=== PATIENT | male | born 1990 | race Caucasian/White ===

== ENCOUNTER 2016-12-13 14:58 | Emergency (ER) | payer BC ==
[2016-12-13] MEDS ORDERED: MVI, Adult with Vitamin K 10 ML, Thiamine 100 MG, Folic Acid 1 MG in Lactated Ringers 1... IV ONE ×4 (15:28)
--- NOTE | 2016-12-13 15:31 | EDM.PDOC ---
ED HPI GENERAL MEDICAL PROBLEM - General Chief Complaint: General Stated Complaint: NOT FEELING GOOD, BP IS HIGH, [id number] Time Seen by Provider: 12/13/16 15:20 History Limitations: Reports: No Limitations - History of Present Illness INITIAL COMMENTS - FREE TEXT/NARRATIVE: 26 yo white male who drinks alcohol daily c/o not feeling himself. Some dizziness Onset: Today Onset Date: 12/13/16 Onset Time: 08:00 Duration: Hour(s): Location: Reports: Generalized Severity: Moderate Improves with: Reports: None Worsens with: Reports: None Associated Symptoms: Reports: Malaise, Weakness - Related Data Allergies Allergy/AdvReac Type Severity Reaction Status Date / Time amoxicillin [From Augmentin] Allergy Hives Verified 12/13/16 15:01 clavulanic acid Allergy Hives Verified 12/13/16 15:01 [From Augmentin] Home Meds: Home Meds . [No Known Home Meds] 12/13/16 [History] Past Medical History - Past Surgical History HEENT Surgical History: Reports: Other (See Below) Other HEENT Surgeries/Procedures: cleft palate repair GI Surgical History: Reports: Hernia, Inguinal Musculoskeletal Surgical History: Reports: Other (See Below) Other Musculoskeletal Surgeries/Procedures:: bone grafting and cleft palate repair Social & Family History - Family History Family Medical History: Noncontributory - Tobacco Use Smoking Status *Q: Current Every Day Smoker Years of Tobacco use: 5 Packs/Tins Daily: 0.3 - Caffeine Use Caffeine Use: Reports: Coffee - Alcohol Use Days Per Week of Alcohol Use: 7 Number of Drinks Per Day: 7 Total Drinks Per Week: 49 Date of Last Drink: 12/12/16 - Recreational Drug Use Recreational Drug Use: No ED ROS GENERAL - Review of Systems Review Of Systems: See Below Constitutional: Reports: Malaise, Weakness HEENT: Reports: No Symptoms Respiratory: Reports: No Symptoms Cardiovascular: Reports: No Symptoms Endocrine: Reports: No Symptoms GI/Abdominal: Reports: No Symptoms : Reports: No Symptoms Musculoskeletal: Reports: No Symptoms Skin: Reports: No Symptoms Neurological: Reports: No Symptoms Psychiatric: Reports: No Symptoms Hematologic/Lymphatic: Reports: No Symptoms Immunologic: Reports: No Symptoms ED EXAM, GENERAL - Physical Exam Exam: See Below Exam Limited By: No Limitations General Appearance: Alert, WD/WN, No Apparent Distress Eye Exam: Bilateral Eye: EOMI, PERRL Ears: Normal External Exam Nose: Normal Inspection Throat/Mouth: Normal Inspection, Normal Lips Head: Atraumatic Neck: Normal Inspection Respiratory/Chest: No Respiratory Distress, No Accessory Muscle Use Cardiovascular: Normal Peripheral Pulses Peripheral Pulses: 2+: Radial (L), Radial (R) GI/Abdominal: Normal Bowel Sounds, Soft, Non-Tender (Male) Exam: No Hernia Back Exam: Normal Inspection, Full Range of Motion Extremities: Normal Inspection, Normal Range of Motion Neurological: Alert, Oriented, CN II-XII Intact Psychiatric: Normal Affect Skin Exam: Warm Lymphatic: No Adenopathy Course - Vital Signs Last Recorded V/S: Last Vital Signs Temp 37.0 C 12/13/16 15:07 Pulse 88 12/13/16 16:23 Resp 20 12/13/16 15:07 BP 154/100 H 12/13/16 16:23 Pulse Ox 98 12/13/16 16:23 - Orders/Labs/Meds Orders: Active Orders 24 hr Category Date Time Status URINALYSIS W/MICROSCOPIC [UA W/MICROSCOPIC] [URIN] Stat Lab 12/13/16 16:13 Received MVI, Adult with Vitamin K [Infuvite Adult] 10 ml Med 12/13/16 15:28 Active Thiamine [Vitamin B-1] 100 mg Folic Acid 1 mg Lactated Ringers [Ringers, Lactated] 1,000 ml IV .BOLUS Medication Orders Multivitamins/Minerals 10 ml/Thiamine HCl 100 mg/ Folic Acid 1 mg/ Lactated Ringer's 1,011.2 mls @ 999 mls/hr IV .BOLUS ONE Stop: 12/13/16 16:28 Last Admin: 12/13/16 15:48 Dose: 999 mls/hr Labs: Laboratory Tests 12/13/16 12/13/16 12/13/16 Range/Units 15:22 15:33 15:33 WBC 7.3 (5.0-10.0) 10^3/uL RBC 4.53 L (4.6-6.2) 10^6/uL Hgb 15.0 (14.0-18.0) g/dL Hct 44.3 (40.0-54.0) % MCV 97.8 (80-100) fL MCH 33.1 (27.0-34.0) pg MCHC 33.9 (33.0-35.0) g/dL Plt Count 190 (150-450) 10^3/uL Neut % (Auto) 64.1 (42.2-75.2) % Lymph % (Auto) 24.9 (20.5-50.1) % Morgan % (Auto) 7.6 (2-8) % Eos % (Auto) 3.0 (1.0-3.0) % Baso % (Auto) 0.4 (0.0-1.0) % Sodium 141 (135-145) mmol/L Potassium 3.9 (3.6-5.0) mmol/L Chloride 102 (101-111) mmol/L Carbon Dioxide 26.0 (21.0-31.0) mmol/L Anion Gap 16.9 BUN 10 (7-18) mg/dL Creatinine 0.9 (0.6-1.3) mg/dL Est Cr Clr Drug Dosing 136.52 mL/min Estimated GFR (MDRD) > 60 BUN/Creatinine Ratio 11.11 Glucose 105 (74-105) mg/dL POC Glucose 87 (70-105) mg/dl Calcium 9.6 (8.4-10.2) mg/dl Total Bilirubin 0.8 (0.2-1.0) mg/dL AST 159 H (10-42) IU/L ALT 194 H (10-60) IU/L Alkaline Phosphatase 118 (42-121) IU/L Total Protein 7.9 (6.7-8.2) g/dl Albumin 4.6 (3.2-5.5) g/dl Globulin 3.3 Albumin/Globulin Ratio 1.39 Meds: Medications Generic Name Dose Route Start Last Admin Trade Name Freq PRN Reason Stop Dose Admin Multivitamins/Minerals 10 ml/ 1,011.2 mls @ 999 mls/hr 12/13/16 15:28 15:48 Thiamine HCl 100 mg/ Folic IV 12/13/16 16:28 999 mls/hr Acid 1 mg/ Lactated Ringer's .BOLUS ONE Administration Discontinued Medications Generic Name Dose Route Start Last Admin Trade Name Freq PRN Reason Stop Dose Admin Al Hydroxide/Mg Hydroxide 30 ml 12/13/16 16:24 Gi Cocktail PO 12/13/16 16:25 ONETIME ONE Departure - Departure Time of Disposition: 16:25 Disposition: Home, Self-Care 01 Condition: Good Clinical Impression: Alcohol liver damage - Discharge Information Forms: ED Department Discharge Additional Instructions: Stop Alcohol Drinking Start Multivitamin daily Eat a Balance Diet with more ( Vegetables and Fruits) F/U W/ PCP - My Orders Last 24 Hours: My Active Orders 12/13/16 15:28 MVI, Adult with Vitamin K [Infuvite Adult] 10 ml Thiamine [Vitamin B-1] 100 mg Folic Acid 1 mg Lactated Ringers [Ringers, Lactated] 1,000 ml IV .BOLUS 12/13/16 16:13 URINALYSIS W/MICROSCOPIC [UA W/MICROSCOPIC] [URIN] Stat - Assessment/Plan Last 24 Hours: My Active Orders 12/13/16 15:28 MVI, Adult with Vitamin K [Infuvite Adult] 10 ml Thiamine [Vitamin B-1] 100 mg Folic Acid 1 mg Lactated Ringers [Ringers, Lactated] 1,000 ml IV .BOLUS 12/13/16 16:13 URINALYSIS W/MICROSCOPIC [UA W/MICROSCOPIC] [URIN] Stat
[2016-12-13 16:03] LABS: CHLORIDE,CL 102 mmol/L (101-111); SODIUM,NA 141 mmol/L (135-145)
[2016-12-13] MEDS ORDERED: GI Cocktail Oral Solution 30 ML PO ONE (16:24)
[2016-12-13 16:29] VITALS: BP 70/32
== END 2016-12-13 16:49 | disposition home or self-care (01) ==
LOC: DL.ED 14:58
DX: K70.9 Alcoholic liver disease, unspecified (principal); F17.210 Nicotine dependence, cigarettes, uncomplicated; F10.10 Alcohol abuse, uncomplicated; Z98.890 Other specified postprocedural states; Z88.1 Allergy status to other antibiotic agents
CPT/HCPCS: 36415; 80053; 81001; 82962; 85025; 96360; 99284; A9270; J3411; J7120; J3490

== ENCOUNTER 2024-06-15 12:22 | Emergency (ER) | payer BC ==
[2024-06-15] MEDS ORDERED: Sodium Chloride 0.9% 10 ML Syringe FLUSH PRN (12:57)
[2024-06-15 13:10] LABS: BASOPHILS PERCENT AUTO 0.5 % (0.0-1.0); EOSINOPHILS PERCENT AUTO 0.2 % (1.0-3.0); HEMATOCRIT 45.9 % (40.0-54.0); HEMOGLOBIN 15.6 g/dL (14.0-18.0); LYMPHOCYTES PERCENT AUTO 24.3 % (20.5-50.1); MEAN CORPUSCULAR HEMOGLOBIN 37.5 pg (27.0-34.0); MEAN CORPUSCULAR VOLUME 110.3 fL (80-100); MONOCYTES PERCENT AUTO 4.7 % (2-8); NEUTROPHILS PERCENT AUTO 70.3 % (42.2-75.2); PLATELET COUNT,PLT 124 10^3/uL (150-450); RED BLOOD CELL COUNT 4.16 10^6/uL (4.6-6.2); WHITE BLOOD CELL COUNT,WBC 6.3 10^3/uL (5.0-10.0)
[2024-06-15] MEDS: Sodium Chloride 0.9% 50 ML IV SCH (13:12)
[2024-06-15] MEDS: Thiamine 200 MG/2 ML MDV IVPUSH ONE (13:12)
[2024-06-15 13:24] LABS: INR 1.6 (0.9-1.2); PROTHROMBIN TIME 16.6 SEC (9.0-12.0)
[2024-06-15 13:57] LABS: A/G RATIO 0.5; ALBUMIN 3.4 g/dL (3.4-5.0); BILIRUBIN TOTAL 3.4 mg/dL (0.2-1.0); BUN/CREATININE RATIO 4.9 (No establ ref range); CALCIUM 8.7 mg/dL (8.5-10.1); CREATININE 0.82 mg/dL (0.70-1.30); EST CRCL DRUG DOSING (CG) 139.32 mL/min; FOLIC ACID 7.6 ng/mL (8.6-58.9); MAGNESIUM 1.4 mg/dL (1.8-2.4); PROTEIN TOTAL,TP 10.2 g/dL (6.4-8.2); T4 FREE 1.51 ng/dL (0.76-1.46); TSH ULTRASENSITIVE 4.92 uIU/mL (0.36-3.74)
[2024-06-15] MEDS: Potassium Chloride 10 MEQ Tab.ER PO ONE (14:17)
[2024-06-15] MEDS: Magnesium Sulf/Wat 2 GM/50 mL 2 GM in Premix Bag 1 BAG IV ONE (14:17)
[2024-06-15] MEDS: Folic Acid 1 MG Tab PO ONE (14:17)
[2024-06-15 14:57] VITALS: BP 134/91; PULSE 104
== END 2024-06-15 15:02 | disposition home or self-care (01) ==
LOC: DL.ED 12:22
DX: F41.9 Anxiety disorder, unspecified (principal); Z88.0 Allergy status to penicillin; Z79.899 Other long term (current) drug therapy
CPT/HCPCS: 36415; 70450; 80053; 82607; 82746; 83735; 84439; 84443; 85025; 85610; 96365; 96375; 99284; A9270; J3411; J3475; J3490

== ENCOUNTER 2025-01-19 05:51 | Day surgery (SDC) | payer BC ==
[2025-01-19] MEDS ORDERED: Propofol 200 MG/20 ML SDV IV ONE (05:52)
[2025-01-19] MEDS ORDERED: Lactated Ringers 1,000 ML IV ONE (05:52)
[2025-01-19] MEDS: Lactated Ringers 1,000 ML IV SCH (06:26)
[2025-01-19] MEDS ORDERED: Propofol 200 MG/20 ML SDV ONE (06:56)
[2025-01-19 08:04] VITALS: BP 120/72; PULSE 70
== END 2025-01-19 08:40 | disposition home or self-care (01) ==
LOC: DL.ENDO 05:51
PROVIDERS: ATTEND Internal Medicine Gastroenterology
DX: K70.9 Alcoholic liver disease, unspecified (principal); D64.9 Anemia, unspecified; F32.A Depression, unspecified; Z79.899 Other long term (current) drug therapy
CPT/HCPCS: 43239; J2704; J7120; S5010